=== PATIENT | female | born 1975 | race African-American/Black ===

== ENCOUNTER 2024-10-18 07:44 | Day surgery (SDC) | payer BC ==
[2024-10-13 15:56] VITALS: BMI 35.4
[2024-10-18] MEDS ORDERED: PROPOFOL 20 ML ONE (08:47)
[2024-10-18] MEDS ORDERED: Lidocaine 1% PF 5 ML VIAL ONE (08:48)
[2024-10-18] MEDS ORDERED: Rocuronium Bromide 10 MG/ML (10ML VIAL) ONE (08:48)
[2024-10-18] MEDS ORDERED: Ferric Subsulfate 8 ML TOPICAL SOLN ONE (09:10)
[2024-10-18] MEDS ORDERED: Scopolamine 1 mg/72 hour Patch ONE (09:20)
[2024-10-18] MEDS ORDERED: Ondansetron PF 4 MG/2 ML Vial ONE (09:53)
[2024-10-18] MEDS ORDERED: SUGAMMADEX SODIUM 200 MG/2 ML VIAL ONE (09:53)
[2024-10-18] MEDS ORDERED: Hydrocodone-Acetamin 15 ML UDCUP ONE (11:52)
== END 2024-10-18 12:20 | disposition home or self-care (01) ==
LOC: EDBD → CSHSDC 07:44
PROVIDERS: ATTEND Otolaryngology Plastic Surgery within the Head & Neck
DX: J35.01 Chronic tonsillitis (principal); J35.3 Hypertrophy of tonsils with hypertrophy of adenoids; G47.33 Obstructive sleep apnea (adult) (pediatric); Z90.710 Acquired absence of both cervix and uterus; Z91.041 Radiographic dye allergy status; Z88.5 Allergy status to narcotic agent; Z91.013 Allergy to seafood; Z91.048 Other nonmedicinal substance allergy status
CPT/HCPCS: 88304; J1010; J1100; J2250; J2405; J2704; J3010